=== PATIENT | female | born 2000 | race Caucasian/White ===

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

== ENCOUNTER 2021-01-07 12:14 | Emergency (ER) | payer BC, SELFPAY ==
[2021-01-07 12:15] VITALS: BP 132/77; PULSE 102; RESP 16; TEMP 36.5; O2SAT 98
--- NOTE | 2021-01-07 12:15 | DI.RAD_ITS ---
EXAM: XR TIB/FIB LT CLINICAL HISTORY: distal jacobs pain TECHNIQUE: COMPARISON: No exams were available for comparison FINDINGS: Four views were obtained. There is a spiral mildly comminuted mildly displaced fracture of the dista l tibial diaphysis. No additional fracture is seen. IMPRESSION: RADIATION DOSE DELIVERED: Total DLP
--- NOTE | 2021-01-07 12:15 | DI.CT_ITS ---
EXAM: CT HEAD CERVICAL SPINE WO COMPARISON: No exams were available for comparison FINDINGS: CT examination of the cervical spine was performed without contrast administration. There is no evidence of acute cervical spine fracture or dislocation. Intervertebral disc spaces are well maintained. Tracheolaryngeal structures appear intact. No cervical mass or adenopathy. Noncontrast cranial CT was performed. Ventricular system is normal in appearance. No evidence of acute intracranial hemorrhage, mass effect, or midline shift. No calvarial fracture. The orbital and temporal bone structures appear intact. Visualized mastoid air cells and paranasal sinuses appear clear. IMPRESSION: No evidence of acute cervical spine injury. No evidence of acute intracranial injury. RADIATION DOSE DELIVERED: 1,508.68mGy.cm Total DLP 1,508.68mGy.cm Total DLP DATA REPOSITORY: All CT scans at this facility are submitted to the National Radiology Data Registry (NRDR) Dose Index Registry (DIR) with the [employer] (A[employer]). RADIATION OPTIMIZATION: All CT scans at this facility use at least one of these dose optimization te chniques: automated exposure control; mA and/or kV adjustment per patient size (includes targeted exa ms where dose is matched to clinical indication); or iterative reconstruction.
--- NOTE | 2021-01-07 12:15 | DI.CT_ITS ---
EXAM: CT CHEST/ABD/PEL W TECHNIQUE: CT examination of the chest, abdomen, and pelvis was performed with bolus infusion of 100 cc of Omnipaque 350. COMPARISON: No exams were available for comparison FINDINGS: There is no evidence of a thoracic vascular injury. The lungs are clear. No pneumothorax or pleural effusion. No mediastinal hematoma. No adenopathy in the chest. Tracheobronchial tree appears intact. The liver, spleen, and pancreas appear normal. Gallbladder and bile ducts are normal. Adrenals and kidneys are unremarkable. No evidence of urinary tract injury or obstruction. No abdominal or pelvic vascular injury seen. No abdominal or pelvic adenopathy. No significant abdomi nal wall hernia or hematoma. No evidence of bowel injury. There is trace pelvic free fluid, nonspecific. [employer] structures are unremarkable. No fracture identified in the region surveyed. Additional thoracic and lumbar spine reconstructions show no evidence of thoracic or lumbar spine fra cture. IMPRESSION: No evidence of acute injury of the chest, abdomen, or pelvis. RADIATION DOSE DELIVERED: 853.55mGy.cm Total DLP 853.55mGy.cm Total DLP DATA REPOSITORY: All CT scans at this facility are submitted to the National Radiology Data Registry (NRDR) Dose Index Registry (DIR) with the [employer] ([employer]). RADIATION OPTIMIZATION: All CT scans at this facility use at least one of these dose optimization te chniques: automated exposure control; mA and/or kV adjustment per patient size (includes targeted exa ms where dose is matched to clinical indication); or iterative reconstruction.
--- NOTE | 2021-01-07 12:23 | DI.CT_ITS ---
EXAM: CT CHEST/ABD/PEL W TECHNIQUE: CT examination of the chest, abdomen, and pelvis was performed with bolus infusion of 100 cc of Omnipaque 350. COMPARISON: No exams were available for comparison FINDINGS: There is no evidence of a thoracic vascular injury. The lungs are clear. No pneumothorax or pleural effusion. No mediastinal hematoma. No adenopathy in the chest. Tracheobronchial tree appears intact. The liver, spleen, and pancreas appear normal. Gallbladder and bile ducts are normal. Adrenals and kidneys are unremarkable. No evidence of urinary tract injury or obstruction. No abdominal or pelvic vascular injury seen. No abdominal or pelvic adenopathy. No significant abdomi nal wall hernia or hematoma. No evidence of bowel injury. There is trace pelvic free fluid, nonspecific. [employer] structures are unremarkable. No fracture identified in the region surveyed. Additional thoracic and lumbar spine reconstructions show no evidence of thoracic or lumbar spine fra cture. IMPRESSION: No evidence of acute injury of the chest, abdomen, or pelvis. RADIATION DOSE DELIVERED: 853.55mGy.cm Total DLP 853.55mGy.cm Total DLP DATA REPOSITORY: All CT scans at this facility are submitted to the National Radiology Data Registry (NRDR) Dose Index Registry (DIR) with the [employer] (ACR). RADIATION OPTIMIZATION: All CT scans at this facility use at least one of these dose optimization te chniques: automated exposure control; mA and/or kV adjustment per patient size (includes targeted exa ms where dose is matched to clinical indication); or iterative reconstruction.
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
[2021-01-07] MEDS: HYDROmorphone 2 MG/ML VIAL 0.5 MG IVP ×2 (12:36→15:12)
[2021-01-07 13:14] VITALS: BP 103/60; PULSE 104; RESP 15; O2SAT 98
[2021-01-07] MEDS: Omnipaque 350 MG/ML 100 ML BTL IJ (13:20)
[2021-01-07] MEDS: Normal Saline - Diluent 50 ML VIAL IV (13:21)
[2021-01-07] MEDS: Normal Saline 1,000 ML 125 ML IV (13:23)
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
[2021-01-07 13:50] VITALS: BP 127/63; PULSE 106; RESP 18; O2SAT 100
--- NOTE | 2021-01-07 14:02 | NUR.NOTE ---
L lower extremity splint applied by Dr. Domingo, pt removed from back board with L lower extremity support with 3 RNs. clothing removed, splint applied, pt tolerated well. c/o L hip. Lorazepam ordered by Dr. Domingo for muscle spasm.
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
[2021-01-07] MEDS: LORazepam 2 MG/ML VIAL 0.5 MG IVP (14:12)
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
[2021-01-07 14:45] VITALS: BP 124/58; PULSE 118; RESP 15; O2SAT 98
--- NOTE | 2021-01-07 14:47 | NUR.NOTE ---
L lower extremity digits warm to touch, positive CSM,
== END 2021-01-07 15:12 | disposition short-term general hospital (02) ==
PROVIDERS: Emergency Provider Emergency Medicine
DX: S82.392A Other fracture of lower end of left tibia, initial encounter for closed fracture (principal); W00.0XXA Fall on same level due to ice and snow, initial encounter; Y93.23 Activity, snow (alpine) (downhill) skiing, snowboarding, sledding, tobogganing and snow tubing
CPT/HCPCS: 29515; 74177; 96361; 96374; 96375; 96376; 99285; 70450; 71260; 72125; 73590; 99284; J2060; J3490